=== PATIENT | male | born 1960 | race African-American/Black ===

== ENCOUNTER 2016-09-07 08:39 | Inpatient (IN) | payer OTHER ==
[~2016-09-07] VITALS: Ht 182.9 cm; Wt 70.9 kg
[2016-09-07] VITALS (10 sets, daily range): BP systolic 142–157; BP diastolic 72–91; PULSE 88–115; RESP 18–20; TEMP 96.6–99.7; O2SAT 96–100
[~2016-09-07 08:39] MED LIST: LORTA5 PO; SUST600T4 PO; TRAM50TA PO; VIAG100T PO
[2016-09-07] MEDS ORDERED: predniSONE 50 MG TAB PO ONE (09:00)
--- NOTE | 2016-09-07 09:04 | PD ---
HPI Chief Complaint: Cold / Flu Symptoms Time Seen by Provider: 09:00 Travel History International Travel<30 days: No Contact w/Intl Traveler<30days: No Traveled to known affect area: No History of Present Illness HPI 56-year-old male presents to the ER today with a one-week history of coughing, nausea, vomiting, [facility] and Levaquin for several days but is not getting better. He is here because he went to get reevaluated. He also states she has been running fevers and having some shortness of breath. He has a sick contact, his family has similar symptoms. Modifying Factors: None Associated Signs & Symptoms: Coughing, nausea, vomiting, shortness of breath, fevers for one week Risk Factors: Sick contact [facility] Past Medical History Arthritis: Yes Blood Disorders: Yes (SICKLE CELL TRAIT) Diminished Hearing: No GERD: Yes Immune Disorder: Yes (+ HIV) Past Surgical History Abdominal Surgery: Yes (INGUINAL HERNIA REPAIR) Social History Alcohol Use: Yes (OCC) Tobacco Use: No (HX 2-3 CIGARETTES A DAY) Substance Use: No Allergies-Medications (Allergen,Severity, Reaction): Coded Allergies: Tylenol #3 (Verified Allergy, Severe, Itching, 09/07/16) Ibuprofen (Verified Allergy, Mild, ITCH, 09/07/16) "states I was allergic, not now" Sulfa (Verified Allergy, Mild, ITCH, 09/07/16) Reported Meds & Prescriptions Reported Meds & Active Scripts Active Reported Levaquin (Levofloxacin) 750 Mg Tab 750 Mg PO DAILY Tramadol (Tramadol HCl) 50 Mg Tab 50 Mg PO Q4H PRN Review of Systems Except as stated in HPI: all other systems reviewed are Neg Physical Exam Narrative GENERAL: Well-developed middle age -Monegasque male in mild respiratory distress. Awake and oriented 3. SKIN: Focused skin assessment warm/dry. HEAD: Atraumatic. Normocephalic. EYES: Pupils equal and round. No scleral icterus. No injection or drainage. ENT: No nasal bleeding or discharge. Mucous membranes pink and moist. NECK: Trachea midline. No JVD. CARDIOVASCULAR: Regular rate and rhythm. No murmur appreciated. RESPIRATORY: No accessory muscle use. Wheezing throughout bilaterally. Breath sounds equal bilaterally. GASTROINTESTINAL: Abdomen soft, non-tender, nondistended. Hepatic and splenic margins not palpable. MUSCULOSKELETAL: No obvious deformities. No clubbing. No cyanosis. No edema. NEUROLOGICAL: Awake and alert. No obvious cranial nerve deficits. Motor grossly within normal limits. Normal speech. PSYCHIATRIC: Appropriate mood and affect; insight and judgment normal. Data Data Last Documented VS Vital Signs Date Time Temp Pulse Resp B/P Pulse Ox O2 Delivery O2 Flow Rate FiO2 09/07/16 11:16 98.8 09/07/16 10:47 115 20 152/88 96 Room Air Orders Influenzae A/B Antigen (09/07/16 09:00) Ecg Monitoring (09/07/16 09:00) Oximetry (09/07/16 09:00) Oxygen Administration (09/07/16 09:00) Chest, Single Ap (09/07/16 09:00) Albuterol-Ipratropium Neb (Duoneb Neb) (09/07/16 09:00) Prednisone (Deltasone) (09/07/16 09:00) Albuterol-Ipratropium Neb (Duoneb Neb) (09/07/16 10:00) Acetaminophen (Tylenol) (09/07/16 10:00) Complete Blood Count With Diff (09/07/16 10:07) Comprehensive Metabolic Panel (09/07/16 10:07) Lactic Acid Sepsis Protocol (09/07/16 10:07) Blood Culture (09/07/16 10:07) Blood Glucose (09/07/16 10:07) Iv Access Insert/Monitor (09/07/16 10:07) Ceftriaxone Inj (Rocephin Inj) (09/07/16 10:07) Azithromycin Inj (Zithromax Inj) (09/07/16 10:07) Labs Laboratory Tests Test 09/07/16 10:35 White Blood Count 17.9 TH/MM3 Red Blood Count 3.73 MIL/MM3 Hemoglobin 11.7 GM/DL Hematocrit 34.6 % Mean Corpuscular Volume 92.7 FL Mean Corpuscular Hemoglobin 31.4 PG Mean Corpuscular Hemoglobin 33.8 % Concent Red Cell Distribution Width 11.8 % Platelet Count 180 TH/MM3 Mean Platelet Volume 8.4 FL Neutrophils (%) (Auto) 82.6 % Lymphocytes (%) (Auto) 10.0 % Monocytes (%) (Auto) 5.1 % Eosinophils (%) (Auto) 0.1 % Basophils (%) (Auto) 2.2 % Neutrophils # (Auto) 14.8 TH/MM3 Lymphocytes # (Auto) 1.8 TH/MM3 Monocytes # (Auto) 0.9 TH/MM3 Eosinophils # (Auto) 0.0 TH/MM3 Basophils # (Auto) 0.4 TH/MM3 CBC Comment AUTO DIFF Differential Comment AUTO DIFF CONFIRMED Platelet Estimate NORMAL Platelet Morphology Comment NORMAL Red Cell Morphology Comment NORMAL Sodium Level 138 MEQ/L Potassium Level 3.7 MEQ/L Chloride Level 101 MEQ/L Carbon Dioxide Level 28.5 MEQ/L Anion Gap 9 MEQ/L Blood Urea Nitrogen 8 MG/DL Creatinine 1.10 MG/DL Estimat Glomerular Filtration 84 ML/MIN Rate Random Glucose 129 MG/DL Lactic Acid Level 1.1 mmol/L Calcium Level 8.7 MG/DL Total Bilirubin 0.4 MG/DL Aspartate Amino Transf 15 U/L (AST/SGOT) Alanine Aminotransferase 20 U/L (ALT/SGPT) Alkaline Phosphatase 68 U/L Total Protein 8.5 GM/DL Albumin 3.5 GM/DL [facility] Medical Decision Making Medical Screen Exam Complete: Yes Emergency Medical Condition: Yes Medical Record Reviewed: Yes Interpretation(s) Laboratory Tests Test 09/07/16 10:35 White Blood Count 17.9 TH/MM3 (4.0-11.0) Red Blood Count 3.73 MIL/MM3 (4.50-5.90) Hemoglobin 11.7 GM/DL (13.0-17.0) Hematocrit 34.6 % (39.0-51.0) Neutrophils (%) (Auto) 82.6 % (16.0-70.0) Basophils (%) (Auto) 2.2 % (0.0-2.0) Neutrophils # (Auto) 14.8 TH/MM3 (1.8-7.7) Basophils # (Auto) 0.4 TH/MM3 (0-0.2) Estimat Glomerular Filtration 84 ML/MIN (>89) Rate Random Glucose 129 MG/DL (74-106) Total Protein 8.5 GM/DL (6.4-8.2) Last 24 hours Impressions Chest X-Ray 09/07/16 0900 Signed Impressions: Service Date/Time: Wednesday, September 07, 2016 09:57 - CONCLUSION: Right upper lobe and left lower lobe infiltrate. Treatment and followup to resolution recommended. Ricco Santoro MD Differential Diagnosis Coughing, wheezing, shortness of breath, vomiting, feversbronchitis versus pneumonia versus URI Narrative Course Patient was initially given prednisone and DuoNeb's in the ER without significant improvement in symptoms. Chest x-ray shows pneumonia. Lab work shows significant leukocytosis as well. IV antibiotics were initiated after cultures were drawn. Lactate was not significantly elevated. At this point, my plan would be to admit the patient for further therapy considering he has already failed outpatient by mouth antibiotics. Case was discussed with Dr. Crocker for admission. Diagnosis Primary Impression: Pneumonia Admitting Information Admitting Physician Requests: Admit Annamarie Espinal MD September 07, 2016 09:04
[2016-09-07] MEDS ORDERED: LEVA750T PO (09:06)
[2016-09-07] MEDS ORDERED: TRAM50TA PO (09:06)
[2016-09-07] MEDS: RESP: ALBUTEROL 2.5 MG/IPRATROPIUM 0.5 MG NEB (SCH) INH ×5 (09:11→21:20)
[2016-09-07] MEDS ORDERED: ACETAMINOPHEN 325 MG TAB PO ONE (10:00)
[2016-09-07] MEDS ORDERED: cefTRIAXone INJ 2,000 MG in SODIUM CHLORIDE 0.9% INJ 100 ML IV STA (10:07)
[2016-09-07] MEDS ORDERED: AZITHROMYCIN INJ 500 MG in SODIUM CHLOR 0.9% 250 ML INJ 250 ML IV STA (10:07)
--- NOTE | 2016-09-07 10:07 | RADHPO ---
EXAM DATE/TIME: 09/07/2016 09:57 [facility] COMPARISON: CHEST PA & LAT, March 26, 2013, 12:29. INDICATIONS : Cough, short of breath. MEDICAL HISTORY : None. SURGICAL HISTORY : None. ENCOUNTER: Initial ACUITY: 1 week PAIN SCORE: 0/10 LOCATION: Bilateral chest FINDINGS: A single view of the chest demonstrates right upper lobe and left lower lobe airspace disease. Heart and the upper limits of normal in size.. Osseous structures are intact. CONCLUSION: Right upper lobe and left lower lobe infiltrate. Treatment and followup to resolution recommended. Ricco Santoro MD on September 07, 2016 at 10:04 Board Certified Radiologist. This report was verified electronically.
[2016-09-07 10:46] LABS: AUTOMATED NEUTROPHIL # 14.8 TH/MM3 (1.8-7.7); BASOPHIL # 0.4 TH/MM3 (0-0.2); BASOPHIL % 2.2 % (0.0-2.0); EOSINOPHIL % 0.1 % (0.0-4.0); HEMATOCRIT 34.6 % (39.0-51.0); LYMPHOCYTE # 1.8 TH/MM3 (1.0-4.8); MEAN CELL VOLUME 92.7 FL (80.0-100.0); MEAN CORPUSCULAR HEMOGLOBIN 31.4 PG (27.0-34.0); MEAN CORPUSCULAR HGB CONC 33.8 % (32.0-36.0); MONO % 5.1 % (0.0-8.0); NEUT % 82.6 % (16.0-70.0); PLATELET COUNT 180 TH/MM3 (150-450); RED BLOOD COUNT 3.73 MIL/MM3 (4.50-5.90); RED CELL DISTRIBUTION WIDTH 11.8 % (11.6-17.2); WHITE BLOOD COUNT 17.9 TH/MM3 (4.0-11.0)
[2016-09-07 10:48] LABS: HEMO FLAGS AUTO DIFF
[2016-09-07 10:58] LABS: CHLORIDE 101 MEQ/L (98-107); POTASSIUM 3.7 MEQ/L (3.5-5.1); SODIUM (NA) 138 MEQ/L (136-145)
[2016-09-07 11:02] LABS: ANION GAP 9 MEQ/L (5-15); BICARBONATE 28.5 MEQ/L (21.0-32.0); BLOOD UREA NITROGEN 8 MG/DL (7-18)
[2016-09-07 11:05] LABS: ALT (GPT) 20 U/L (12-78); AST (GOT) 15 U/L (15-37); GLOMERULAR FILTRATION RATE 84 ML/MIN (>89)
[2016-09-07 11:07] LABS: TOTAL BILIRUBIN ADULT 0.4 MG/DL (0.2-1.0)
[2016-09-07 11:08] LABS: ALKALINE PHOSPHATASE 68 U/L (45-117)
[2016-09-07 11:19] LABS: PLATELET ESTIMATE SMEAR NORMAL (NORMAL); PLATELET MORPHOLOGY NORMAL (NORMAL); SCAN/DIFF AUTO DIFF CONFIRMED
[2016-09-07] MEDS ORDERED: SODIUM CHLORIDE 0.9% FLUSH 10 ML FLUSH IV FLUSH PRN (11:45)
[2016-09-07] MEDS: HEPARIN SODIUM - SQ 10,000 UNITS/ML VIAL SQ SCH ×2 (12:27→21:17)
--- NOTE | 2016-09-07 14:12 | HHI.HP ---
HPI Service [facility] Primary Care Physician [facility] Admission Diagnosis pneumonia/failed outpatient therapy Diagnoses: Chief Complaint: Short of breath and fever nausea vomiting Travel History International Travel<30 Days: No Contact w/Intl Traveler <30 Da: No Traveled to Known Affected Are: No History of Present Illness 56 years old male presented to the ED with history of one week worsening cough short of breath nausea vomiting, dizziness, fever and chills his temperature was 101.9 at home as he measured it. No diarrhea. She went to [facility] and he was given by mouth Levaquin with cough medication and discharged home however patient did not feel any improvement continue to have severe cough and phlegm which is greenish. Along with tightness in his chest worsened with cough. Patient at first denied smoking however later on he admitted smoking few cigarettes only when he drinks beer which it was moths ago, he also stated he no longer drinks alcohol but his history is vague about alcohol and tobacco habits. In previous note there was a mentioning of HIV however patient completely denied having HIV, we will recheck Review of Systems All systems reviewed and was positive for what is mentioned in history of present illness otherwise negative Past Family Social History Past Medical History Arthritis GERD Sickle cell trait Questionable HIV Past Surgical History Inguinal hernia repair Allergies: Coded Allergies: Tylenol #3 (Verified Allergy, Severe, Itching, 09/07/16) Ibuprofen (Verified Allergy, Mild, ITCH, 09/07/16) "states I was allergic, not now" Sulfa (Verified Allergy, Mild, ITCH, 09/07/16) Family History H/O cancer in his father he is not sure what it is but he think it's related to smoking Social History Patient not clarify exactly but he stated he stopped drinking alcohol long time ago, and that he smoked only a few cigarettes drink beer and he did that a few months ago, denied marijuana or other illicit drug abuse Physical Exam Vital Signs Vital Signs Date Time Temp Pulse Resp B/P Pulse Ox O2 Delivery O2 Flow Rate FiO2 09/07/16 13:11 96.8 96 18 144/86 100 09/07/16 12:31 94 18 145/84 100 Room Air 09/07/16 11:16 98.8 09/07/16 10:47 115 20 152/88 96 Room Air 09/07/16 09:04 100 Room Air 09/07/16 09:04 100 Room Air 09/07/16 09:04 09/07/16 09:01 114 100 Room Air 09/07/16 08:48 99.7 92 18 142/72 98 Physical Exam GENERAL: This is a well-nourished, well-developed patient, in no apparent distress. SKIN: No rashes, warm and dry HEAD: Atraumatic. Normocephalic. EYES: Pupils equal round and reactive. Extraocular motions intact. No scleral icterus. ENT: Nose without bleeding, or drainage, Airway patent. NECK: Trachea midline. Supple CARDIOVASCULAR: Regular rate and rhythm without murmurs, gallops, or rubs. RESPIRATORY: Positive crackles and wheezes mostly on the right lower and middle lobe GASTROINTESTINAL: Abdomen soft, non-tender, nondistended. Positive bowel sounds MUSCULOSKELETAL: Extremities without clubbing, cyanosis, or edema. Pedal pulses appreciated NEUROLOGICAL: Awake and alert. Moves all extremity. Normal speech.no focal neurological deficit Laboratory Laboratory Tests Test 09/07/16 10:35 White Blood Count 17.9 Red Blood Count 3.73 Hemoglobin 11.7 Hematocrit 34.6 Mean Corpuscular Volume 92.7 Mean Corpuscular Hemoglobin 31.4 Mean Corpuscular Hemoglobin 33.8 Concent Red Cell Distribution Width 11.8 Platelet Count 180 Mean Platelet Volume 8.4 Neutrophils (%) (Auto) 82.6 Lymphocytes (%) (Auto) 10.0 Monocytes (%) (Auto) 5.1 Eosinophils (%) (Auto) 0.1 Basophils (%) (Auto) 2.2 Neutrophils # (Auto) 14.8 Lymphocytes # (Auto) 1.8 Monocytes # (Auto) 0.9 Eosinophils # (Auto) 0.0 Basophils # (Auto) 0.4 CBC Comment AUTO DIFF Differential Comment AUTO DIFF CONFIRMED Platelet Estimate NORMAL Platelet Morphology Comment NORMAL Red Cell Morphology Comment NORMAL Sodium Level 138 Potassium Level 3.7 Chloride Level 101 Carbon Dioxide Level 28.5 Anion Gap 9 Blood Urea Nitrogen 8 Creatinine 1.10 Estimat Glomerular Filtration 84 Rate Random Glucose 129 Lactic Acid Level 1.1 Calcium Level 8.7 Total Bilirubin 0.4 Aspartate Amino Transf 15 (AST/SGOT) Alanine Aminotransferase 20 (ALT/SGPT) Alkaline Phosphatase 68 Total Protein 8.5 Albumin 3.5 Date/Time Procedure Status Source Growth 09/07/16 10:35 Aerobic Blood Culture Received Blood Peripheral Pending 09/07/16 10:35 Anaerobic Blood Culture Received Blood Peripheral Pending 09/07/16 09:10 Influenza Types A,B Antigen (GARRETT) - Final Complete Nasal Washing NEGATIVE FOR FLU A AND B ANTIGEN.... Result Diagram: 09/07/16 1035 09/07/16 1035 Imaging Last Impressions Chest X-Ray 09/07/16 0900 Signed Impressions: Service Date/Time: Wednesday, September 07, 2016 09:57 - CONCLUSION: Right upper lobe and left lower lobe infiltrate. Treatment and followup to resolution recommended. Ricco Santoro MD Assessment and Plan Assessment and Plan 56 years old male admitted with short of breath fever and chills nausea and vomiting Right middle and lower lobe CAP failed outpatient therapy Levaquin Meets sepsis criteria with (fever, leukocytosis 52790, bandemia, tachycardia) with source of pneumonia Questionable history of HIV, we will repeat the screening if positive need to watch out for for PCP Start O2, DuoNeb, Solu-Medrol, Rocephin and Zithromax Sputum culture, urine antigen for Legionella and pneumococcus, influenza screening If HIV screening is positive for need CD4 count ? History of HIV The screening, follow CD4 counting if positive Hypochromic microcytic anemia A chronic with patient having history of sickle cell trait History of GERD: Will start Protonix considering using steroid ED prophylaxis with SCD and heparin Discussed Condition With Patient in ED physician Physician Certification 2 Midnight Certification Type: Admission for Inpatient Services Order for Inpatient Services The services are ordered in accordance with Medicare regulations or non- Medicare payer requirements, as applicable. In the case of services not specified as inpatient-only, they are appropriately provided as inpatient services in accordance with the 2-midnight benchmark. Estimated LOS (days): 2 days is the estimated time the patient will need to remain in the hospital, assuming treatment plan goals are met and no additional complications. Post-Hospital Plan: Not yet determined Anastacia Crocker MD September 07, 2016 14:12
[2016-09-07] MEDS: SODIUM CHLORIDE 0.9% FLUSH 10 ML FLUSH IV FLUSH SCH (21:17)
[2016-09-07] MEDS: guaiFENesin/DEXTROMETHORPHAN 200 MG/20 MG/10 ML CUP PO PRN (21:17)
[2016-09-07] MEDS: methylPREDNISolone SOD SUCC 40 MG/1 ML VIAL IV SCH (21:17)
[2016-09-07] MEDS: traMADol HCL 50 MG TAB PO PRN (21:18)
[2016-09-08] VITALS: BP 146/87; PULSE 74; RESP 18; TEMP 98.3; O2SAT 97
[2016-09-08] MEDS: RESP: ALBUTEROL 2.5 MG/IPRATROPIUM 0.5 MG NEB (SCH) INH ×4 (03:36→21:05)
[2016-09-08] MEDS: HEPARIN SODIUM - SQ 10,000 UNITS/ML VIAL SQ SCH ×3 (03:49→20:43)
[2016-09-08] MEDS: guaiFENesin/DEXTROMETHORPHAN 200 MG/20 MG/10 ML CUP PO PRN (03:50)
[2016-09-08] MEDS: traMADol HCL 50 MG TAB PO PRN ×2 (03:50→20:43)
[2016-09-08 06:48] LABS: AUTOMATED NEUTROPHIL # 13.5 TH/MM3 (1.8-7.7); BASOPHIL % 0.1 % (0.0-2.0); EOSINOPHIL % 0.1 % (0.0-4.0); HEMATOCRIT 32.1 % (39.0-51.0); LYMPH % 6.5 % (9.0-44.0); MEAN CELL VOLUME 95.3 FL (80.0-100.0); MEAN CORPUSCULAR HGB CONC 33.6 % (32.0-36.0); MONO % 2.9 % (0.0-8.0); NEUT % 90.4 % (16.0-70.0); PLATELET COUNT 179 TH/MM3 (150-450); RED BLOOD COUNT 3.37 MIL/MM3 (4.50-5.90); RED CELL DISTRIBUTION WIDTH 11.8 % (11.6-17.2); WHITE BLOOD COUNT 14.9 TH/MM3 (4.0-11.0)
[2016-09-08 06:55] LABS: POTASSIUM 4.2 MEQ/L (3.5-5.1)
[2016-09-08 07:01] LABS: BICARBONATE 27.4 MEQ/L (21.0-32.0)
[2016-09-08 07:02] LABS: HEMO FLAGS DIFF FINAL
[2016-09-08 09:06] VITALS: BP 153/85; PULSE 79; RESP 18; TEMP 96.8; O2SAT 96
[2016-09-08] MEDS: methylPREDNISolone SOD SUCC 40 MG/1 ML VIAL IV SCH ×2 (09:56→20:43)
[2016-09-08] MEDS: PANTOPRAZOLE SOD 40 MG DELAYED RELEASE TAB PO SCH (09:56)
[2016-09-08] MEDS: cefTRIAXone INJ 1,000 MG in SODIUM CHLORIDE 0.9% INJ 100 ML IV SCH (09:56)
[2016-09-08] MEDS: SODIUM CHLORIDE 0.9% FLUSH 10 ML FLUSH IV FLUSH SCH ×2 (09:56→20:44)
[2016-09-08] MEDS: AZITHROMYCIN INJ 500 MG in SODIUM CHLOR 0.9% 250 ML INJ 250 ML IV SCH (12:38)
[2016-09-08 13:08] VITALS: BP 160/84; PULSE 85; RESP 18; TEMP 97.5; O2SAT 98
--- NOTE | 2016-09-08 15:55 | HHI.PR ---
Subjective Remarks Cough remains. Fevers improved. HIV screen is positive, confirmation studies pending. Objective Vital Signs Date Time Temp Pulse Resp B/P Pulse Ox O2 Delivery O2 Flow Rate FiO2 09/08/16 13:08 97.5 85 18 160/84 98 09/08/16 09:06 96.8 79 18 153/85 96 09/08/16 04:50 18 09/08/16 00:00 98.3 74 18 146/87 97 09/07/16 21:20 99 21 09/07/16 20:00 98.3 88 18 156/86 99 09/07/16 16:00 96.9 90 19 157/91 96 09/07/16 16:00 96.6 96 20 144/86 100 I/O 09/07/16 09/07/16 09/07/16 09/08/16 09/08/16 09/08/16 07:00 15:00 23:00 07:00 15:00 23:00 Intake Total 700 ml 530 ml 520 ml 100 ml Output Total 200 ml Balance 700 ml 530 ml 520 ml -100 ml Intake Oral 530 ml 520 ml 100 ml IV Total 700 ml 0 ml Output Urine Total 200 ml # Voids 3 2 2 Result Diagram: 09/08/16 0620 09/08/16 0620 Imaging Last Impressions Chest X-Ray 09/07/16 0900 Signed Impressions: Service Date/Time: Wednesday, September 07, 2016 09:57 - CONCLUSION: Right upper lobe and left lower lobe infiltrate. Treatment and followup to resolution recommended. Ricco Santoro MD Objective Remarks GENERAL: NAD, A&Ox3 SKIN: Warm and dry. HEAD: Normocephalic. EYES: No scleral icterus. No injection or drainage. NECK: Supple, trachea midline. No JVD or lymphadenopathy. CARDIOVASCULAR: Regular rate and rhythm without murmurs, gallops, or rubs. RESPIRATORY: Breath sounds equal bilaterally. No accessory muscle use. Bilateral rhonchi. Cough. GASTROINTESTINAL: Abdomen soft, non-tender, nondistended. MUSCULOSKELETAL: No cyanosis, or edema. BACK: Nontender without obvious deformity. No CVA tenderness. Medications and IVs Administered Medications Medications (Trade) Dose Ordered Sig/Mazin Route PRN Reason Start Time Stop Time Status Last Admin Dose Admin Sodium Chloride 2 ml 2 ml BID IV FLUSH 09/07/16 21:00 09/08/16 09:56 Ceftriaxone Sodium 1000 mg/ Sodium Chloride 100 ml @ 200 mls/hr Q24H IV 09/08/16 11:00 09/08/16 09:56 Azithromycin/ Sodium Chloride (Zithromax Inj/ NS 250 ml Inj) 250 ml @ 250 mls/hr Q24H IV 09/08/16 12:00 09/08/16 12:38 Methylprednisolone Sodium Succinate (SoluMEDROL INJ) 40 mg Q12H IV 09/07/16 21:00 09/08/16 09:56 Guaifenesin/ Dextromethorphan (Robitussin Dm 200-20 Mg/10 ml Liq) 10 ml Q4H PRN PO COUGH 09/07/16 11:45 09/08/16 03:50 Heparin Sodium (Porcine) (Heparin Inj) 5,000 units Q8H SQ 09/07/16 12:00 09/08/16 12:38 Tramadol HCl (Ultram) 50 mg Q4H PRN PO PAIN 09/07/16 11:45 09/08/16 03:50 Pantoprazole Sodium (Protonix) 40 mg DAILY PO 09/08/16 09:00 09/08/16 09:56 A/P Problem List: (1) Pneumonia ICD Code: J18.9 (2) COPD exacerbation ICD Code: J44.1 Assessment and Plan Assessment and Plan 56 years old male admitted with pneumonia with outpatient treatment failure. Right Middle Lobe Pneumonia Right Lower Lobe Pneumonia Outpatient Treatment Failure Failed Levaquin Responding to Rocephin and azithromycin thus far Bactrim added Oxygen PRN Nebulized treatments Sepsis Resolved Follow for recurrence HIV Patient was uncertain about this history Screen is positive CD4 ordered Confirmation studies pending Bactrim added to pneumonia treatment Hypochromic microcytic anemia Sickle Cell Trait Chronic Follow CBC GERD Protonix DVT prophylaxis SCD and heparin Tyler Hooks MD September 08, 2016 15:54
[2016-09-08 16:14] VITALS: BP 159/83; PULSE 81; RESP 18; TEMP 97.6; O2SAT 97
[2016-09-08] MEDS: LACTOBACILLUS ACIDOPHILUS TAB PO SCH (18:29)
[2016-09-08 20:00] VITALS: BP 157/85; PULSE 81; RESP 18; TEMP 99.5; O2SAT 94
[2016-09-08] MEDS: SULFAMETHOXAZOLE-TRIMETHOPRIM DS 800-160 MG TAB PO SCH (20:44)
[2016-09-08 21:05] VITALS: O2SAT 96
[2016-09-09] VITALS (7 sets, daily range): BP systolic 148–153; BP diastolic 80–87; PULSE 66–82; RESP 16–20; TEMP 96.1–98.5; O2SAT 94–97
[2016-09-09] MEDS: RESP: ALBUTEROL 2.5 MG/IPRATROPIUM 0.5 MG NEB (SCH) INH ×4 (03:11→21:05)
[2016-09-09] MEDS: HEPARIN SODIUM - SQ 10,000 UNITS/ML VIAL SQ SCH ×3 (04:14→21:25)
[2016-09-09 07:41] LABS: POTASSIUM 4.2 MEQ/L (3.5-5.1)
[2016-09-09 07:44] LABS: HEMATOCRIT 31.7 % (39.0-51.0); MEAN CELL VOLUME 95.4 FL (80.0-100.0); MEAN CORPUSCULAR HEMOGLOBIN 32.2 PG (27.0-34.0); MEAN CORPUSCULAR HGB CONC 33.8 % (32.0-36.0); PLATELET COUNT 216 TH/MM3 (150-450); RED BLOOD COUNT 3.32 MIL/MM3 (4.50-5.90); RED CELL DISTRIBUTION WIDTH 12.3 % (11.6-17.2); REVIEW FLAG FINAL; WHITE BLOOD COUNT 15.9 TH/MM3 (4.0-11.0)
[2016-09-09 07:49] LABS: BICARBONATE 25.9 MEQ/L (21.0-32.0)
[2016-09-09] MEDS: SULFAMETHOXAZOLE-TRIMETHOPRIM DS 800-160 MG TAB PO SCH ×2 (09:28→21:25)
[2016-09-09] MEDS: LACTOBACILLUS ACIDOPHILUS TAB PO SCH ×3 (09:28→18:44)
[2016-09-09] MEDS: PANTOPRAZOLE SOD 40 MG DELAYED RELEASE TAB PO SCH (09:28)
[2016-09-09] MEDS: traMADol HCL 50 MG TAB PO PRN (09:31)
[2016-09-09] MEDS: methylPREDNISolone SOD SUCC 40 MG/1 ML VIAL IV SCH ×2 (09:31→21:24)
[2016-09-09] MEDS: SODIUM CHLORIDE 0.9% FLUSH 10 ML FLUSH IV FLUSH SCH ×2 (09:32→21:25)
[2016-09-09] MEDS: cefTRIAXone INJ 1,000 MG in SODIUM CHLORIDE 0.9% INJ 100 ML IV SCH (11:49)
[2016-09-09] MEDS: guaiFENesin/DEXTROMETHORPHAN 200 MG/20 MG/10 ML CUP PO PRN (11:58)
[2016-09-09] MEDS: AZITHROMYCIN INJ 500 MG in SODIUM CHLOR 0.9% 250 ML INJ 250 ML IV SCH (12:54)
[2016-09-09] MEDS ORDERED: ACETIC ACID/HYDROCORTISONE OTIC SOLN 10 ML BTL LEFT EAR SCH (14:00)
--- NOTE | 2016-09-09 14:01 | HHI.PR ---
Subjective Remarks Cough remains with some mild improvement. Complaint of left ear fullness and pain today (antibiotics in place, but he requests ear drops - he was taking these previously). HIV screen is positive, confirmation studies pending. Objective Vital Signs Date Time Temp Pulse Resp B/P Pulse Ox O2 Delivery O2 Flow Rate FiO2 09/09/16 12:22 97.3 68 18 153/87 95 09/09/16 10:01 97 21 09/09/16 08:39 96.1 74 18 149/85 95 09/09/16 00:00 98.5 80 16 151/81 95 09/08/16 21:05 96 21 09/08/16 20:00 99.5 81 18 157/85 94 09/08/16 16:14 97.6 81 18 159/83 97 I/O 09/08/16 09/08/16 09/08/16 09/09/16 09/09/16 09/09/16 07:00 15:00 23:00 07:00 15:00 23:00 Intake Total 520 ml 100 ml 240 ml 240 ml Output Total 200 ml 450 ml Balance 520 ml -100 ml 240 ml -210 ml Intake Oral 520 ml 100 ml 240 ml 240 ml Output Urine Total 200 ml 450 ml # Voids 2 2 1 # Bowel Movements 0 0 Result Diagram: 09/09/1652409/09/16524 Objective Remarks GENERAL: NAD, A&Ox3 SKIN: Warm and dry. HEAD: Normocephalic. EYES: No scleral icterus. No injection or drainage. NECK: Supple, trachea midline. No JVD or lymphadenopathy. CARDIOVASCULAR: Regular rate and rhythm without murmurs, gallops, or rubs. RESPIRATORY: Breath sounds equal bilaterally. No accessory muscle use. Bilateral rhonchi. Cough. GASTROINTESTINAL: Abdomen soft, non-tender, nondistended. MUSCULOSKELETAL: No cyanosis, or edema. BACK: Nontender without obvious deformity. No CVA tenderness. A/P Problem List: (1) Pneumonia ICD Code: J18.9 (2) COPD exacerbation ICD Code: J44.1 Assessment and Plan Assessment and Plan 56 years old male admitted with pneumonia with outpatient treatment failure. Slow improvement. Screening for immunocompromise; possible HIV status (screen positive). Acetic Acid drops added for left ear symptoms. Right Middle Lobe Pneumonia Right Lower Lobe Pneumonia Outpatient Treatment Failure Failed Levaquin Responding to Rocephin and azithromycin thus far Bactrim continued Oxygen PRN Nebulized treatments Sepsis Resolved Follow for recurrence HIV Patient was uncertain about this history Screen is positive HIV confirmation testing pending CD4 studies pending Confirmation studies pending Bactrim added to pneumonia treatment Hypochromic microcytic anemia Sickle Cell Trait Chronic Follow CBC GERD Protonix DVT prophylaxis SCD and heparin Tyler Hooks MD September 09, 2016 14:00
[2016-09-09 16:11] LABS: HIV 1 AB DIFFERENTIATION Positive (Negative); HIV 1/2 AG AND AB SCREEN Reactive (Negative); HIV 2 AB DIFFERENTIATION Negative (Negative)
[2016-09-09] MEDS: ACETIC ACID 2% LEFT EAR SCH ×2 (18:44→22:06)
[2016-09-09] MEDS: guaiFENesin SOLUTION 200 MG/10 ML CUP PO PRN (21:25)
[2016-09-10] VITALS (7 sets, daily range): BP systolic 145–153; BP diastolic 84–93; PULSE 70–81; RESP 16–20; TEMP 97.1–98.4; O2SAT 93–98
[2016-09-10] MEDS: RESP: ALBUTEROL 2.5 MG/IPRATROPIUM 0.5 MG NEB (SCH) INH ×4 (03:20→21:30)
[2016-09-10] MEDS: HEPARIN SODIUM - SQ 10,000 UNITS/ML VIAL SQ SCH ×3 (05:34→20:39)
[2016-09-10] MEDS: ACETIC ACID 2% LEFT EAR SCH ×3 (05:35→20:40)
[2016-09-10] MEDS: PANTOPRAZOLE SOD 40 MG DELAYED RELEASE TAB PO SCH (09:34)
[2016-09-10] MEDS: guaiFENesin SOLUTION 200 MG/10 ML CUP PO PRN ×3 (09:34→22:04)
[2016-09-10] MEDS: traMADol HCL 50 MG TAB PO PRN ×3 (09:34→22:04)
[2016-09-10] MEDS: LACTOBACILLUS ACIDOPHILUS TAB PO SCH ×3 (09:34→18:03)
[2016-09-10] MEDS: SODIUM CHLORIDE 0.9% FLUSH 10 ML FLUSH IV FLUSH SCH ×2 (09:35→20:39)
[2016-09-10] MEDS: methylPREDNISolone SOD SUCC 40 MG/1 ML VIAL IV SCH ×2 (09:35→20:39)
--- NOTE | 2016-09-10 10:37 | PD.CONS ---
History of Present Illness Service ID CONSULT DR MCKEON Consult Requested By Reason for Consult PNEUMONIA Primary Care Physician [facility] Diagnoses: (1) HIV disease (2) Pneumonia History of Present Illness 56 Y/O MALE ADM WITH 2 WEEKS OF COUGH AND SOB. HE WAS FOUND TO HAVE PNEUMONIA IN THE UPPER RIGHT LUNG. HE HAS A HISTORY OF HIV DX 2006, STATES HE IS NOT SURE HOW HE OBTAINED THE DX HE WAS NEGATIVE WHEN HE WAS RELEASED FROM SNF IN 2004. HE IS COMPLIANT WITH MEDICATION AND HAS BEEN ON GENVOYA, HE STATES HIS CD4 IS OVER 700 AND HE IS UNDETECTABLE. HIS WEIGHT HAS BEEN STABLE. HE IS FOLLOWED AT THE [facility]. HE IS DISABLED. HE STATES HE ISNT SICK OFTEN. HE HAD PNA ONCE ABOUT 4-5 YRS AGO. Review of Systems Constitutional: COMPLAINS OF: Fever, Weight gain Endocrine: DENIES: Heat/cold intolerance, Polydipsia Eyes: DENIES: Eye pain Respiratory: COMPLAINS OF: Cough, Sputum production, Shortness of breath, DENIES: Hemoptysis Cardiovascular: DENIES: Chest pain, Palpitations Gastrointestinal: DENIES: Abdominal pain Genitourinary: DENIES: Urinary frequency Musculoskeletal: DENIES: Stiffness Integumentary: DENIES: Nail changes Neurologic: DENIES: Headache, Localized weakness Psychiatric: DENIES: Mood changes Except as stated in HPI: all other systems reviewed are Neg Past Family Social History Allergies: Coded Allergies: Tylenol #3 (Verified Allergy, Severe, Itching, 09/07/16) Ibuprofen (Verified Allergy, Mild, ITCH, 09/07/16) "states I was allergic, not now" Lactose (Unverified Allergy, Mild, 09/07/16) PT STATES HE IS LACTOSE INTOLERANT Sulfa (Verified Allergy, Mild, ITCH, 09/07/16) Past Medical History Past Family Social History Past Medical History Arthritis GERD Sickle cell trait Positive HIV Past Surgical History Past Surgical History Inguinal hernia repair Reported Medications genvoya Active Ordered Medications bactrim ds rocephin zithromax Family History Family History H/O cancer in his father he is not sure what it is but he think it's related to smoking he has 1 daughter and 2 grand children Social History Social History Patient not clarify exactly but he stated he stopped drinking alcohol long time ago, and that he smoked only a few cigarettes drink beer and he did that a few months ago, denied marijuana or other illicit drug abuse Physical Exam Vital Signs Vital Signs Date Time Temp Pulse Resp B/P Pulse Ox O2 Delivery O2 Flow Rate FiO2 09/10/16 09:50 98 21 09/10/16 00:00 97.1 74 20 153/88 97 09/09/16 21:06 97 21 09/09/16 20:00 98.0 66 20 148/80 97 09/09/16 17:03 96.9 82 18 149/87 94 09/09/16 12:22 97.3 68 18 153/87 95 Physical Exam GENERAL: This is a well-nourished, well-developed patient, in no apparent distress. SKIN: No rashes, ecchymoses or lesions. Cool and dry. HEAD: Atraumatic. Normocephalic. No temporal or scalp tenderness. EYES: Pupils equal round and reactive. Extraocular motions intact. No scleral icterus. No injection or drainage. ENT: Nose without bleeding, purulent drainage or septal hematoma. Throat without erythema, tonsillar hypertrophy or exudate. Uvula midline. Airway patent. NECK: Trachea midline. No JVD or lymphadenopathy. Supple, nontender, no meningeal signs. CARDIOVASCULAR: Regular rate and rhythm without murmurs, gallops, or rubs. RESPIRATORY: Course breath sounds a few crackles at RUL / RLL Breath sounds equal bilaterally. No wheezes, rales, or rhonchi. GASTROINTESTINAL: Abdomen soft, non-tender, nondistended. No hepato-splenomegaly , or palpable masses. No guarding. MUSCULOSKELETAL: Extremities without clubbing, cyanosis, or edema. No joint tenderness, effusion, or edema noted. No calf tenderness. Negative Homans sign bilaterally. NEUROLOGICAL: Awake and alert. Cranial nerves II through XII intact. Motor and sensory grossly within normal limits. Five out of 5 muscle strength in all muscle groups. Normal speech. Laboratory Date/Time Procedure Status Source Growth 09/07/16 10:35 Aerobic Blood Culture - Preliminary Resulted Blood Peripheral NO GROWTH IN 2 DAYS 09/07/16 10:35 Anaerobic Blood Culture - Preliminary Resulted Blood Peripheral NO GROWTH IN 2 DAYS 09/07/16 09:10 Influenza Types A,B Antigen (GARRETT) - Final Complete Nasal Washing NEGATIVE FOR FLU A AND B ANTIGEN.... Result Diagram: 09/09/1625 09/09/16524 Assessment and Plan Problem List: (1) Pneumonia Status: Acute Plan: continue zmax/ rocephin pt is on bactrim states cd4 is over 700 thus does not need pcp prophalysis however will continue until cd4 resulted (2) HIV disease Status: Chronic Plan: restart genvoya 1 po daily Problem Qualifiers (1) Pneumonia: Shamika Mooney September 10, 2016 10:37
--- NOTE | 2016-09-10 10:56 | HHI.PR ---
Subjective Remarks Only mild premenstrual time. 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 No new complaints regards to his left ear pain and pneumonia symptoms. She is agreeable with ID consult to discuss HIV treatments. CD4 count studies are pending. Objective Vital Signs Date Time Temp Pulse Resp B/P Pulse Ox O2 Delivery O2 Flow Rate FiO2 09/10/16 10:26 97.5 76 18 145/93 94 09/10/16 09:50 98 21 09/10/16 00:00 97.1 74 20 153/88 97 09/09/16 21:06 97 21 09/09/16 20:00 98.0 66 20 148/80 97 09/09/16 17:03 96.9 82 18 149/87 94 09/09/16 12:22 97.3 68 18 153/87 95 I/O 09/09/16 09/09/16 09/09/16 09/10/16 09/10/16 09/10/16 07:00 15:00 23:00 07:00 15:00 23:00 Intake Total 240 ml 1440 ml 240 ml Output Total 450 ml Balance -210 ml 1440 ml 240 ml Intake Oral 240 ml 1440 ml 240 ml Output Urine Total 450 ml # Voids 4 3 # Bowel Movements 0 1 0 Result Diagram: 09/09/1625 09/09/16524 Objective Remarks GENERAL: NAD, A&Ox3 SKIN: Warm and dry. HEAD: Normocephalic. EYES: No scleral icterus. No injection or drainage. NECK: Supple, trachea midline. No JVD or lymphadenopathy. CARDIOVASCULAR: Regular rate and rhythm without murmurs, gallops, or rubs. RESPIRATORY: Breath sounds equal bilaterally. No accessory muscle use. Bilateral rhonchi. Cough. GASTROINTESTINAL: Abdomen soft, non-tender, nondistended. MUSCULOSKELETAL: No cyanosis, or edema. BACK: Nontender without obvious deformity. No CVA tenderness. A/P Problem List: (1) Pneumonia ICD Code: J18.9 (2) COPD exacerbation ICD Code: J44.1 Assessment and Plan Assessment and Plan 56 years old male admitted with pneumonia with outpatient treatment failure. Slow improvement. HIV is confirmed with testing, infectious diseases consulted. 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
[2016-09-10] MEDS: SULFAMETHOXAZOLE-TRIMETHOPRIM DS 800-160 MG TAB PO SCH ×2 (11:49→20:39)
[2016-09-10] MEDS: cefTRIAXone INJ 1,000 MG in SODIUM CHLORIDE 0.9% INJ 100 ML IV SCH (11:50)
[2016-09-10] MEDS ORDERED: GENVOYA PO SCH (13:00)
[2016-09-10] MEDS: AZITHROMYCIN INJ 500 MG in SODIUM CHLOR 0.9% 250 ML INJ 250 ML IV SCH (13:26)
[2016-09-10] MEDS ORDERED: ELVIT/COBI/EMTR/TENOF 150/150/200/300 MG TABLETS PO SCH (15:00)
[2016-09-10] MEDS: ELVIT/COBI/EMTR/TENOF 150/150/200/300 MG TABLETS PO SCH (18:03)
[2016-09-11] VITALS (8 sets, daily range): BP systolic 121–154; BP diastolic 81–98; PULSE 70–82; RESP 16–20; TEMP 95.5–97.1; O2SAT 94–99
[2016-09-11] MEDS: RESP: ALBUTEROL 2.5 MG/IPRATROPIUM 0.5 MG NEB (SCH) INH ×3 (03:19→15:51)
[2016-09-11 03:50] LABS: CD4/CD8 RATIO 0.7 (0.86-5.00)
[2016-09-11] MEDS: HEPARIN SODIUM - SQ 10,000 UNITS/ML VIAL SQ SCH ×3 (05:31→21:43)
[2016-09-11] MEDS: ACETIC ACID 2% LEFT EAR SCH ×3 (05:32→21:43)
[2016-09-11] MEDS: traMADol HCL 50 MG TAB PO PRN ×4 (05:37→17:48)
[2016-09-11] MEDS: guaiFENesin SOLUTION 200 MG/10 ML CUP PO PRN ×4 (05:37→17:47)
[2016-09-11 07:43] LABS: HEMATOCRIT 35.3 % (39.0-51.0); MEAN CELL VOLUME 93.9 FL (80.0-100.0); MEAN CORPUSCULAR HEMOGLOBIN 30.8 PG (27.0-34.0); MEAN CORPUSCULAR HGB CONC 32.8 % (32.0-36.0); PLATELET COUNT 277 TH/MM3 (150-450); RED BLOOD COUNT 3.76 MIL/MM3 (4.50-5.90); RED CELL DISTRIBUTION WIDTH 12.1 % (11.6-17.2); REVIEW FLAG FINAL; WHITE BLOOD COUNT 14.9 TH/MM3 (4.0-11.0)
[2016-09-11 08:18] LABS: BICARBONATE 26.1 MEQ/L (21.0-32.0); POTASSIUM 5.1 MEQ/L (3.5-5.1)
[2016-09-11] MEDS ORDERED: cloNIDine HCL 0.1 MG TAB PO PRN (08:30)
[2016-09-11] MEDS: methylPREDNISolone SOD SUCC 40 MG/1 ML VIAL IV SCH ×2 (09:52→21:42)
[2016-09-11] MEDS: LISINOPRIL 20 MG TAB PO SCH (09:53)
[2016-09-11] MEDS: SODIUM CHLORIDE 0.9% FLUSH 10 ML FLUSH IV FLUSH SCH ×2 (09:53→21:43)
[2016-09-11] MEDS: SULFAMETHOXAZOLE-TRIMETHOPRIM DS 800-160 MG TAB PO SCH ×2 (09:53→21:42)
[2016-09-11] MEDS: LACTOBACILLUS ACIDOPHILUS TAB PO SCH ×3 (09:54→17:47)
[2016-09-11] MEDS: ELVIT/COBI/EMTR/TENOF 150/150/200/300 MG TABLETS PO SCH (09:54)
[2016-09-11] MEDS: PANTOPRAZOLE SOD 40 MG DELAYED RELEASE TAB PO SCH (09:54)
[2016-09-11] MEDS: cefTRIAXone INJ 1,000 MG in SODIUM CHLORIDE 0.9% INJ 100 ML IV SCH (09:55)
[2016-09-11] MEDS ORDERED: ELVITAB PO (10:04)
[2016-09-11] MEDS ORDERED: LACT PO (10:04)
[2016-09-11] MEDS ORDERED: CEFD300C PO (10:04)
[2016-09-11] MEDS ORDERED: AZIT250T3 PO (10:04)
[2016-09-11] MEDS ORDERED: BACT800T5 PO (10:04)
[2016-09-11] MEDS: AZITHROMYCIN INJ 500 MG in SODIUM CHLOR 0.9% 250 ML INJ 250 ML IV SCH (13:26)
--- NOTE | 2016-09-11 16:51 | HHI.PR ---
Subjective Remarks Pneumonia symptoms improving. No new complaints. He is now able to ambulate without much dyspnea. If this continued she should be ready for discharge tomorrow. Objective Vital Signs Date Time Temp Pulse Resp B/P Pulse Ox O2 Delivery O2 Flow Rate FiO2 09/11/16 09:49 95 21 09/11/16 08:00 96.5 70 20 154/86 98 09/11/16 06:37 18 09/11/16 04:00 97.1 75 16 144/86 98 09/11/16 00:27 97.0 81 18 121/81 94 09/10/16 21:30 98 21 09/10/16 21:18 98.4 81 16 148/85 93 I/O 09/10/16 09/10/16 09/10/16 09/11/16 09/11/16 09/11/16 07:00 15:00 23:00 07:00 15:00 23:00 Intake Total 240 ml 950 ml Output Total 250 ml Balance 240 ml 950 ml -250 ml Intake Oral 240 ml 950 ml Output Urine Total 250 ml # Voids 3 6 # Bowel Movements 0 2 Result Diagram: 09/11/16 0732 09/11/16 0732 Objective Remarks GENERAL: NAD, A&Ox3 SKIN: Warm and dry. HEAD: Normocephalic. EYES: No scleral icterus. No injection or drainage. NECK: Supple, trachea midline. No JVD or lymphadenopathy. CARDIOVASCULAR: Regular rate and rhythm without murmurs, gallops, or rubs. RESPIRATORY: Breath sounds equal bilaterally. No accessory muscle use. Bilateral rhonchi. Cough. GASTROINTESTINAL: Abdomen soft, non-tender, nondistended. MUSCULOSKELETAL: No cyanosis, or edema. BACK: Nontender without obvious deformity. No CVA tenderness. A/P Problem List: (1) Pneumonia ICD Code: J18.9 (2) COPD exacerbation ICD Code: J44.1 Assessment and Plan Assessment and Plan 56 years old male admitted with pneumonia with outpatient treatment failure. Improvement continues. Continued on genvoya and pneumonia treatments. No other complaints today. 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
[2016-09-11] MEDS: RESP: ALBUTEROL 2.5 MG/3 ML NEB (SCH) NEB (21:07)
[2016-09-12 00:47] VITALS: BP 131/77; PULSE 79; RESP 18; TEMP 97; O2SAT 100
[2016-09-12] MEDS: RESP: ALBUTEROL 2.5 MG/3 ML NEB (SCH) NEB ×2 (03:55→09:47)
[2016-09-12] MEDS: ACETIC ACID 2% LEFT EAR SCH (05:05)
[2016-09-12] MEDS: HEPARIN SODIUM - SQ 10,000 UNITS/ML VIAL SQ SCH (05:06)
[2016-09-12 08:00] VITALS: BP 135/80; PULSE 66; RESP 20; TEMP 97.2; O2SAT 98
[2016-09-12] MEDS: LISINOPRIL 20 MG TAB PO SCH (08:54)
[2016-09-12] MEDS: SULFAMETHOXAZOLE-TRIMETHOPRIM DS 800-160 MG TAB PO SCH (08:54)
[2016-09-12] MEDS: traMADol HCL 50 MG TAB PO PRN (08:54)
[2016-09-12] MEDS: PANTOPRAZOLE SOD 40 MG DELAYED RELEASE TAB PO SCH (08:54)
[2016-09-12] MEDS: LACTOBACILLUS ACIDOPHILUS TAB PO SCH (08:54)
[2016-09-12] MEDS: guaiFENesin SOLUTION 200 MG/10 ML CUP PO PRN (08:54)
[2016-09-12] MEDS: ELVIT/COBI/EMTR/TENOF 150/150/200/300 MG TABLETS PO SCH (08:55)
[2016-09-12] MEDS: SODIUM CHLORIDE 0.9% FLUSH 10 ML FLUSH IV FLUSH SCH (08:55)
[2016-09-12] MEDS: methylPREDNISolone SOD SUCC 40 MG/1 ML VIAL IV SCH (08:55)
--- NOTE | 2016-09-12 09:01 | HHI.DS ---
Discharge Summary Admission Date September 07, 2016 at 11:23 Discharge Date: September 12, 2016 Admitting Diagnosis pneumonia/failed outpatient therapy (1) Pneumonia ICD Code: J18.9 (2) HIV disease ICD Code: B20 Diagnosis: Secondary Procedures None Brief History - From Admission 56 years old male presented to the ED with history of one week worsening cough short of breath nausea vomiting, dizziness, fever and chills his temperature was 101.9 at home as he measured it. No diarrhea. She went to [facility] and he was given by mouth Levaquin with cough medication and discharged home however patient did not feel any improvement continue to have severe cough and phlegm which is greenish. Along with tightness in his chest worsened with cough. Patient at first denied smoking however later on he admitted smoking few cigarettes only when he drinks beer which it was moths ago, he also stated he no longer drinks alcohol but his history is vague about alcohol and tobacco habits. In previous note there was a mentioning of HIV however patient completely denied having HIV, we will recheck CBC/BMP: 09/11/16 0732 09/11/16 0732 Significant Findings Laboratory Tests Test 09/11/16 07:32 White Blood Count 14.9 TH/MM3 (4.0-11.0) Red Blood Count 3.76 MIL/MM3 (4.50-5.90) Hemoglobin 11.6 GM/DL (13.0-17.0) Hematocrit 35.3 % (39.0-51.0) Blood Urea Nitrogen 20 MG/DL (7-18) Estimat Glomerular Filtration 69 ML/MIN (>89) Rate Random Glucose 122 MG/DL (74-106) Imaging Last Impressions Chest X-Ray 09/07/16 0900 Signed Impressions: Service Date/Time: Wednesday, September 07, 2016 09:57 - CONCLUSION: Right upper lobe and left lower lobe infiltrate. Treatment and followup to resolution recommended. Ricco Santoro MD PE at Discharge GENERAL: NAD, A&Ox3 SKIN: Warm and dry. HEAD: Normocephalic. EYES: No scleral icterus. No injection or drainage. NECK: Supple, trachea midline. No JVD or lymphadenopathy. CARDIOVASCULAR: Regular rate and rhythm without murmurs, gallops, or rubs. RESPIRATORY: Breath sounds equal bilaterally. No accessory muscle use. GASTROINTESTINAL: Abdomen soft, non-tender, nondistended. MUSCULOSKELETAL: No cyanosis, or edema. BACK: Nontender without obvious deformity. No CVA tenderness. Hospital Course Mr. Jacobson is a 56-year-old male who was admitted with right upper lobe and left lower lobe pneumonia. He had been treated with Levaquin as an outpatient and failed treatment. He is HIV positive and a CD4 count here was 362. Lowered CD4 count may be related specifically to the infection itself and not necessarily preceding the onset of infection. Infectious disease consult was obtained and have recommended continuation of genvoya at previous dosings. In the hospital he received Bactrim, azithromycin, and Rocephin as treatment Center time he has done well with resolution of his symptoms and today returned to his baseline status. He is off oxygen. He is tolerating ambulation. Medically stable for discharge today. Pt Condition on Discharge: Stable Discharge Disposition: Discharge Home Discharge Time: <= 30 minutes Discharge Instructions DIET: Follow Instructions for: As Tolerated, No Restrictions Activities you can perform: Regular-No Restrictions Follow up Referrals: Infectious Disease - 4 Weeks PCP Follow-up - 1 Week New Medications: Azithromycin (Azithromycin) 250 Mg Tab 250 MG PO DAILY Infection #10 Ref 0 TAB Cefdinir (Cefdinir) 300 Mg Cap 300 MG PO BID Infection #20 Ref 0 CAP Qmuancbwswlb-Rmzocypfvv-Vlljwjpvqavu-Tenofvir (Stribild) [id number] Mg Tab 1 TAB PO DAILY Infection #30 TAB Lactobacillus Acidophilus (Acidophilus/l-Sporogenes) 1 Tab Tab 1 TAB PO TID Infection #90 TAB Sulfamethoxazole-Trimethoprim (Bactrim DS) 800-160 Mg Tab 1 TAB PO Q12HR Infection #30 TAB Continued Medications: Tramadol (Tramadol) 50 Mg Tab 50 MG PO Q4H PRN PAIN Ref 0 TAB Discontinued Medications: Levofloxacin (Levaquin) 750 Mg Tab 750 MG PO DAILY Infection Ref 0 TAB Tyler Hooks MD September 12, 2016 09:01
[2016-09-12 09:48] VITALS: O2SAT 98
== END 2016-09-12 10:29 | disposition home or self-care (01) | DRG 975 ==
LOC: PHED 08:39 → PHEDA 11:23 → PH3A 13:10
PROVIDERS: ADMIT Hospitalist; ATTEND Hospitalist
DX: A41.9 Sepsis, unspecified organism (principal); B20 Human immunodeficiency virus [HIV] disease; J44.0 Chronic obstructive pulmonary disease with (acute) lower respiratory infection; J18.9 Pneumonia, unspecified organism; J44.1 Chronic obstructive pulmonary disease with (acute) exacerbation; D57.3 Sickle-cell trait; D50.9 Iron deficiency anemia, unspecified; K21.9 Gastro-esophageal reflux disease without esophagitis
CPT/HCPCS: 71010; 80048; 80053; 83605; 85025; 85027; 86355; 86357; 86359; 86360; 86701; 86702; 86703; 87040; 87804; 94640; 94664; 96365; 96375; J0456; J0696; J1644; J2920; J7050; J7512; J7613